=== PATIENT | female | born 1945 | race American Indian/Alaskan Native ===

== ENCOUNTER 2016-12-05 01:12 | Emergency (ER) | payer MEDICARE ==
[2016-12-05] MEDS ORDERED: PEPCID IV ONE (01:47)
[2016-12-05] MEDS ORDERED: BENADRYL IV ONE (01:47)
--- NOTE | 2016-12-05 01:58 | Emergency Department Report ---
ED Allergic Reaction HPI - General Chief complaint: Allergic Reaction Stated complaint: RIGHT SIDE FACIAL SWELLING Time Seen by Provider: 12/05/16 01:35 Source: patient Mode of arrival: Ambulatory Limitations: No Limitations - History of Present Illness Initial Comments: 71-year-old female presents to the emergency department complaining of facial swelling. Patient states that when she woke up yesterday morning the left side of her lips were swollen. She states this morning this has resolved, but the right side of her lips and face were swollen. Patient states that she applied an ice pack and try to sleep, but states when she woke up the swelling was still present. Patient denies swelling of the tongue. She denies difficulty breathing or difficulty swallowing. Patient denies similar symptoms in the past. There are no other complaints. MD Complaint: facial swelling -: Gradual, days(s) (1) Exposure: medication Symptoms: lip swelling. denies: itching, difficulty swallowing, difficulty breathing Severity: moderate Treatment Prior to Arrival: none Previous Allergy History: none - Related Data Previous Rx's Medication Instructions Recorded Last Taken Type HYDROcodone/APAP 5-325 [Clemons 1 each PO Q6HR PRN #20 tablet 05/01/14 Unknown Rx 5/325] amLODIPine [Norvasc] 10 mg PO DAILY #30 tab 12/05/16 Unknown Rx Allergies Allergy/AdvReac Type Severity Reaction Status Date / Time No Known Allergies Allergy Unverified 05/01/14 12:04 ED Review of Systems ROS: Stated complaint: RIGHT SIDE FACIAL SWELLING Other details as noted in HPI Comment: All other systems reviewed and negative ENT: as per HPI (lip swelling) ED Past Medical Hx - Past Medical History Previous Medical History?: Yes Hx Hypertension: Yes Hx Arthritis: Yes - Surgical History Past Surgical History?: Yes Additional Surgical History: Hysterectomy - Family History Family history: no significant - Social History Smoking Status: Never Smoker Substance Use Type: None - Medications Home Medications: Home Medications Medication Instructions Recorded Confirmed Last Taken Type HYDROcodone/APAP 5-325 [Clemons 1 each PO Q6HR PRN #20 tablet 05/01/14 Unknown Rx 5/325] amLODIPine [Norvasc] 10 mg PO DAILY #30 tab 12/05/16 Unknown Rx ED Physical Exam - General Limitations: No Limitations General appearance: alert, in no apparent distress - Head Head exam: Present: atraumatic, normocephalic - Eye Eye exam: Present: normal appearance, PERRL, EOMI - ENT ENT exam: Present: normal orophraynx, mucous membranes moist, other (moderate edema noted to the upper and lower lips on the right side with extension into the right cheek. No tenderness to palpation. No edema noted to the tongue or the floor of the mouth. Posterior pharynx is unremarkable.) - Neck Neck exam: Present: normal inspection, full ROM. Absent: tenderness - Respiratory Respiratory exam: Present: normal lung sounds bilaterally. Absent: respiratory distress - Cardiovascular Cardiovascular Exam: Present: regular rate, normal rhythm, normal heart sounds - GI/Abdominal GI/Abdominal exam: Present: soft, normal bowel sounds. Absent: distended, tenderness - Extremities Exam Extremities exam: Present: normal inspection, full ROM. Absent: tenderness - Back Exam Back exam: Present: normal inspection, full ROM. Absent: tenderness - Neurological Exam Neurological exam: Present: alert, oriented X3. Absent: motor sensory deficit - Skin Skin exam: Present: warm, dry, intact ED Course Vital Signs 12/05/16 12/05/16 01:18 01:48 Temperature 98.8 F Pulse Rate 84 Respiratory 18 18 Rate Blood Pressure 141/83 O2 Sat by Pulse 98 100 Oximetry ED Medical Decision Making - Lab Data Result diagrams: 12/05/16 02:21 12/05/16 02:23 - Medical Decision Making Lab results reviewed and discussed with the patient. Patient has been observed in the emergency department from his 4 hours. With medication, her symptoms are improving. Patient would like to go home at this time. Patient's CAITLYN inhibitor will be discontinued. Patient will be discharged home at this time to follow up with her primary care physician. - Differential Diagnosis allergic reaction, CAITLYN inhibitor-induced angioedema Critical care attestation.: If time is entered above; I have spent that time in minutes in the direct care of this critically ill patient, excluding procedure time. ED Disposition Clinical Impression: Angioedema of lips Qualifiers: Encounter type: initial encounter Qualified Code(s): T78.3XXA - Angioneurotic edema, initial encounter Disposition: DISCHARGED TO HOME OR SELFCARE Is pt being admited?: No Condition: Stable Instructions: Angioedema (ED) Prescriptions: amLODIPine [Norvasc] 10 mg PO DAILY #30 tab Referrals: PRIMARY CARE,MD [Primary Care Provider] - 3-5 Days Time of Disposition: 04:57
[2016-12-05 02:49] LABS: Hematocrit 35.5 % (30.3-42.9); Hemoglobin 11.4 gm/dl (10.1-14.3); Mean Corpuscular HGB Conc 32 % (30-34); Mean Corpuscular Hemoglobin 29 pg (28-32); Mean Corpuscular Volume 90 fl (79-97); Platelet Count 291 K/mm3 (140-440); Red Blood Count 3.95 M/mm3 (3.65-5.03); Red Cell Distribution Width 14.9 % (13.2-15.2); White Blood Count 5.9 K/mm3 (4.5-11.0)
[2016-12-05 02:58] LABS: BUN/Creatinine Ratio 26.66; Calcium 9.5 mg/dL (8.4-10.2); Chloride 96.3 mmol/L (98-107); Potassium 4.4 mmol/L (3.6-5.0)
[2016-12-05 03:01] LABS: Basophils % (Auto) 0.6 % (0.0-1.8); Eosinophils % (Auto) 1.4 % (0.0-4.3)
[2016-12-05 05:24] VITALS: BP 146/63
== END 2016-12-05 05:23 | disposition home or self-care (01) ==
LOC: ED 01:12
DX: T78.3XXA Angioneurotic edema, initial encounter (principal); I10 Essential (primary) hypertension; M19.90 Unspecified osteoarthritis, unspecified site; Z90.710 Acquired absence of both cervix and uterus
CPT/HCPCS: 36415; 80048; 85025; 96374; 96375; 99283; J1200; J2930